=== PATIENT | female | born 1985 | race Caucasian/White ===

== ENCOUNTER → 2018-09-25 16:34 | Outpatient (CLI) | payer OTHER, SELFPAY ==
[2018-09-25 15:50] VITALS: BMI 30.7
[2018-09-25 17:13] LABS: Absolute Neutrophil Count 5.1 X10^3/uL (2.0-7.7); Basophil# 0.01 X10^3/uL; Basophil% 0.1 % (0-1); Eosinophil# 0.21 X10^3/uL; Eosinophils% 2.7 % (0-5); Hemoglobin 10.9 g/dl (12.0-15.0); Lymphocyte % 24.5 % (19-41); Mean Corp Hgb Conc 34.1 g/gl (32-36); Mean Corpuscular Hgb 30.1 pg (27.0-32.0); Mean Corpuscular Volume 88.4 fL (81-99); Mean Platelet Vol. 9.2 fl (6.2-12.0); Monocyte% 6.5 % (0-10); Neutrophil # 5.12 X10^3/uL (2.7-7.7); Neutrophil % 66.1 % (47-70); Platelet Count 206 K/mm3 (150-450); RBC Distribution Width CV 12.5 % (11.6-14.6); RBC Distribution Width SD 40.6 fl (35.1-43.9); Red Blood Count 3.62 M/mm3 (4.2-5.4); White Blood Count 7.8 K/mm3 (4.4-11.0)
[2018-09-25 17:24] LABS: POSITIVE COUNT NO; POSITIVE DIFFERENTIAL NO; POSITIVE MORPHOLOGY NO
[2018-09-25 18:24] LABS: HIV - WCH Non-Reactive (Nonreactive); Rubella IgG 53.5 IU/mL
[2018-09-27 01:41] LABS: Rapid Plasmin Reagin (RPR) NONREACTIVE (NONREACTIVE)
[2018-09-27 16:33] LABS: HEPATITIS B SURFACE AG Negative (Negative)
== END ==
PROVIDERS: Nurse Practitioner Women's Health; Family Provider Family Medicine; PCP Family Medicine; Referring Provider Obstetrics & Gynecology; Visit Provider Obstetrics & Gynecology
DX: Z34.90 Encounter for supervision of normal pregnancy, unspecified, unspecified trimester (principal)
CPT/HCPCS: 36415; 85025; 86592; 86703; 86762; 86850; 86900; 87340

== ENCOUNTER → 2018-09-25 19:30 | Outpatient (CLI) | payer OTHER, SELFPAY ==
[2018-09-25 15:50] VITALS: BMI 30.7
[2018-09-25 22:02] LABS: Chlamydia Trachomatis by PCR Negative (Negative); Neisserai gonorrhoeae by PCR Negative (Negative); Probe Check PASS; Sample Adequacy Control PASS; Specimen Processing Control PASS
[2018-10-01 14:05] LABS: HPV Genotype 16, Aptima Negative (Negative)
[2018-10-01 14:56] LABS: HPV APTIMA, High Risk Positive (Negative); HPV Genotype 18,45 Aptima Negative (Negative)
== END ==
PROVIDERS: Family Provider Family Medicine; PCP Family Medicine; Visit Provider Nurse Practitioner Women's Health
DX: Z34.90 Encounter for supervision of normal pregnancy, unspecified, unspecified trimester (principal); Z12.4 Encounter for screening for malignant neoplasm of cervix
CPT/HCPCS: 87077; 87086; 87088; 87491; 87591; 87624; 88175; G0145

== ENCOUNTER → 2018-10-03 13:08 | Outpatient (CLI) | payer SELFPAY ==
[2018-09-25 15:50] VITALS: BMI 30.7
--- NOTE | 2018-10-03 13:10 | US_ITS ---
STUDY: SECOND AND THIRD TRIMESTER OBSTETRICAL ULTRASOUND REASON FOR EXAM: Female, 33 years old. Routine survey. LMP: May 02, 2018. TECHNIQUE: Transabdominal TECHNICAL QUALITY: Adequate. PRIOR ULTRASOUND: None. FINDINGS: There is a single intrauterine fetus. The fetus is in a breech presentation. There is demonstrated cardiac activity with a heart rate of 150 bpm. There is a normal amniotic fluid volume. The largest amniotic fluid pocket measures 6.7 cm x 4.4 cm. The amniotic fluid index (FLAVIA) is normal. The placenta is posterior in location and is not low lying. There are Grade 0 placental changes. The cervix measures 3.3 cm in length. The bilateral adnexal regions are normal. BIOMETRY: BPD: 5.19 cm: 21 weeks, 6 days HC: 20.09 cm: 22 weeks, 2 days AC: 18.29 cm: 23 weeks, 1 days FL: 3.74 cm: 22 weeks, 0 days CI: 76% FL/BPD: 72% FL/HC: FL/AC: 20% HC/AC: 1.10 age by current US: 22 weeks, 3 days. TERENCE by current US: February 03, 2019. Estimated Age by LMP: 20 weeks, 0 days. TERENCE by LMP: February 06, 2019. ANATOMY: Gender: Male Cranium: Normal lateral ventricles. Normal choroid plexus. Normal cerebellum. Normal cisterna magna. Normal face, nose and lips. Chest: Normal 4-chamber heart. Abdomen/Pelvis: Normal diaphragm. Normal stomach. Normal abdominal wall. Normal cord insertion. Normal 3 vessel cord. Normal kidneys. Normal bladder. Spine: Normal cervical spine. Normal thoracic spine. Normal lumbar spine. Normal sacrum. Extremities: Normal bilateral upper extremities. Normal bilateral lower extremities. US/OB Anatomy Scan IMPRESSION: Single live intrauterine gestation with a mean gestational age of 22 weeks and 3 days. Electronically Signed: Edagrd Jessica MD at 15:15 EST Tel [phone], Service support ,
== END ==
PROVIDERS: Family Provider Family Medicine; PCP Family Medicine; Referring Provider Nurse Practitioner Women's Health; Visit Provider Nurse Practitioner Women's Health
DX: Z36.89 Encounter for other specified antenatal screening (principal)
CPT/HCPCS: 76805

== ENCOUNTER → 2018-11-08 12:15 | Outpatient (CLI) | payer SELFPAY ==
[2018-11-08 11:48] VITALS: BMI 30.7
[2018-11-08 13:31] LABS: Absolute Lymphocyte Count 1.53 X10^3/ul (0.83-4.51); Absolute Neutrophil Count 4.9 X10^3/uL (2.0-7.7); Basophil# 0.01 X10^3/uL; Basophil% 0.1 % (0-1); Eosinophil# 0.09 X10^3/uL; Eosinophils% 1.3 % (0-5); Hematocrit 30.9 % (37-47); Hemoglobin 10.2 g/dl (12.0-15.0); Lymphocyte # 1.53 X10^3/ul (4.0); Lymphocyte % 21.4 % (19-41); Mean Corpuscular Hgb 29.7 pg (27.0-32.0); Mean Corpuscular Volume 89.8 fL (81-99); Mean Platelet Vol. 9.7 fl (6.2-12.0); Monocyte# 0.62 X10^3/uL; Monocyte% 8.7 % (0-10); Neutrophil # 4.89 X10^3/uL (2.7-7.7); Neutrophil % 68.2 % (47-70); Platelet Count 224 K/mm3 (150-450); RBC Distribution Width CV 12.4 % (11.6-14.6); RBC Distribution Width SD 39.1 fl (35.1-43.9); Red Blood Count 3.44 M/mm3 (4.2-5.4); White Blood Count 7.2 K/mm3 (4.4-11.0)
[2018-11-08 13:35] LABS: POSITIVE COUNT NO; POSITIVE DIFFERENTIAL NO; POSITIVE MORPHOLOGY NO
[2018-11-08 14:00] LABS: Glucose Challenge Gest 1H 50g 67 mg/dL (70-140)
== END ==
PROVIDERS: Family Provider Family Medicine; PCP Family Medicine; Referring Provider Obstetrics & Gynecology; Visit Provider Obstetrics & Gynecology
DX: Z34.80 Encounter for supervision of other normal pregnancy, unspecified trimester (principal)
CPT/HCPCS: 36415; 82950; 85025

== ENCOUNTER → 2018-12-12 11:45 | Outpatient (CLI) | payer OTHER, SELFPAY ==
[2018-12-12 11:31] VITALS: BMI 30.7
[2018-12-12 12:06] LABS: Absolute Lymphocyte Count 1.57 X10^3/ul (0.83-4.51); Absolute Neutrophil Count 4.6 X10^3/uL (2.0-7.7); Basophil# 0.01 X10^3/uL; Basophil% 0.1 % (0-1); Eosinophils% 1.5 % (0-5); Hematocrit 33.7 % (37-47); Hemoglobin 10.8 g/dl (12.0-15.0); Lymphocyte # 1.57 X10^3/ul (4.0); Lymphocyte % 22.9 % (19-41); Mean Corpuscular Hgb 28.6 pg (27.0-32.0); Mean Corpuscular Volume 89.4 fL (81-99); Mean Platelet Vol. 9.5 fl (6.2-12.0); Monocyte# 0.53 X10^3/uL; Monocyte% 7.7 % (0-10); Neutrophil # 4.61 X10^3/uL (2.7-7.7); Neutrophil % 67.4 % (47-70); Platelet Count 206 K/mm3 (150-450); RBC Distribution Width CV 13.2 % (11.6-14.6); RBC Distribution Width SD 41.8 fl (35.1-43.9); Red Blood Count 3.77 M/mm3 (4.2-5.4); White Blood Count 6.9 K/mm3 (4.4-11.0)
[2018-12-12 12:07] LABS: POSITIVE COUNT NO; POSITIVE DIFFERENTIAL NO; POSITIVE MORPHOLOGY NO
== END ==
PROVIDERS: Family Provider Family Medicine; PCP Family Medicine; Visit Provider Nurse Practitioner Women's Health
DX: O99.019 Anemia complicating pregnancy, unspecified trimester (principal); Z3A.00 Weeks of gestation of pregnancy not specified
CPT/HCPCS: 36415; 85025

== ENCOUNTER → 2019-01-16 | Outpatient (CLI) | payer OTHER, SELFPAY ==
[2019-01-16 15:47] VITALS: BMI 30.7
== END | disposition home or self-care (01) ==
LOC: LABSPEC 17:12
PROVIDERS: Family Provider Family Medicine; PCP Family Medicine; Referring Provider Obstetrics & Gynecology; Visit Provider Obstetrics & Gynecology
DX: Z34.91 Encounter for supervision of normal pregnancy, unspecified, first trimester (principal)
CPT/HCPCS: 87081

== ENCOUNTER 2019-01-29 02:05 | Inpatient (IN) | payer SELFPAY ==
[2018-09-25 15:50] VITALS: BMI 30.7
[2019-01-16 15:47] VITALS: BMI 30.7
[2019-01-29] MEDS: Lactated Ringers 1,000 ML 50 ML IV (02:20)
[2019-01-29 02:38] LABS: Absolute Lymphocyte Count 1.76 X10^3/ul (0.83-4.51); Absolute Neutrophil Count 6.2 X10^3/uL (2.0-7.7); Basophil# 0.01 X10^3/uL; Basophil% 0.1 % (0-1); Eosinophil# 0.11 X10^3/uL; Eosinophils% 1.2 % (0-5); Hematocrit 37.1 % (37-47); Hemoglobin 12.6 g/dl (12.0-15.0); Lymphocyte # 1.76 X10^3/ul (4.0); Lymphocyte % 19.9 % (19-41); Mean Corpuscular Hgb 28.8 pg (27.0-32.0); Mean Corpuscular Volume 84.9 fL (81-99); Mean Platelet Vol. 9.4 fl (6.2-12.0); Monocyte# 0.71 X10^3/uL; Neutrophil # 6.24 X10^3/uL (2.7-7.7); Neutrophil % 70.5 % (47-70); Platelet Count 246 K/mm3 (150-450); RBC Distribution Width CV 13.5 % (11.6-14.6); RBC Distribution Width SD 41.5 fl (35.1-43.9); Red Blood Count 4.37 M/mm3 (4.2-5.4); White Blood Count 8.9 K/mm3 (4.4-11.0)
[2019-01-29 02:40] LABS: POSITIVE COUNT NO; POSITIVE DIFFERENTIAL NO; POSITIVE MORPHOLOGY NO
[2019-01-29] MEDS: Oxytocin 30 units/NS 500 ml 30 UNITS/500 ML IV.SOLN 334 UNITS IV (02:40)
[2019-01-29 02:45] LABS: Prothrombin Time (Protime)PT. 13.2 SECONDS (11.7-14.9)
[2019-01-29 02:46] LABS: Partial Thromboplast Time 28.2 Seconds (24.1-36.2)
[2019-01-29 02:50] LABS: AST(SGOT) 28 U/L (15-37); Alanine Aminotransfer ALT/SGPT 28 U/L (13-56); EST Glomerular Filtration Rate 122 mL/min (>60); Est Glom Filt Rate - Afr Amer 147 mL/min (>60); Uric Acid 3.9 mg/dL (2.6-6.0)
[2019-01-29 03:00] VITALS: BMI 32.2
--- NOTE | 2019-01-29 03:02 | HP.PCM_ITS ---
- Problem List (1) Precipitous delivery Status: Acute (2) Advanced maternal age during in third trimester Status: Acute Comment: genetic counseling provided and declined, growth us 36 weeks (3) Positive test for human papillomavirus (HPV) Status: Acute Comment: Negative PAP repeat in 1 year (4) Anemia in preg-unspec Status: Acute Comment: iron repeat monthly cbc (5) Status: Acute Qualifiers: Comment: carrier, genetic, and NTD screening declined. Anatomy US nl (6) Late care affecting in second trimester Status: Acute Comment: First visit at 20 weeks (7) Supervision of other normal Status: Acute Comment: PRR TERENCE 02/06/19 PC: Moraima Alonso Leah, Jaden Mckay. Spouse Elder History Date of Admission: 09/27/17 Final TERENCE: 02/06/19 Gestational age: 38 Weeks and 6 Days History of this : This is a 33 year-old, G6, P5 at 38 weeks 6 days weeks gestational age presents in active labor 9 cm of dilation and delivered precipitously. Contractions had been on and off throughout the day prior but onset of active labor started just after midnight and patient presented at 2:30 in the morning. Patient denied denied any significant vaginal bleeding denied any loss of fluid. She admitted good movement. She has had an uncomplicated although initial blood pressure was elevated at 164/100 but repeat blood pressure was within normal limits. Surgical History: Surgical History (Last Reviewed 01/16/19 @ 15:46 by Miranda Ruvalcaba) Carpal tunnel syndrome of right wrist G56.01 History of hip surgery Z98.890 Allergies No Known Allergies Allergy (Verified 01/16/19 15:46) Home Medications: Home Medications sertraline 100 mg tablet 200 mg PO QDAY #60 tab 11/08/18 ferrous sulfate 325 mg (65 mg iron) tablet 325 mg PO DAILY tab 01/16/19 Smoking Status: Never smoker Alcohol: None Number of Fetus(es): 1 Heart Tracin moderate variability reactive no decelerations category I tracing Vale: regular History Past Pregnancies: Past Pregnancies Pregancy History 6 Elective abortions Hx Para 5 Spontaneous abortions Hx # Term Pregnancies 5 Ectopic pregnancies Hx # Pregnancies Multiple births # of living children 5 Past Pregnancies Del. Date Name GA/Weeks Outcome Route Bth Weight Gen Labor Lgth Anes thesia Del Locatn Provider FOB 05/30/05 Celeste live - full term Female [facility] 10/26/07 Moraima live - full term Female [facility] 09/27/09 Alyson live - full term Female [place] 07/05/12 Nely live - full term Male [facility] 08/20/15 Jaden live - full term Male [place] Labs: Mom's Problem List Problem Status Onset Code Precipitous delivery Acute O62.3 Mom's Labs & Results 01/29/19 01/29/19 01/29/19 02:18 02:18 02:18 WBC 8.9 RBC 4.37 Hgb 12.6 Hct 37.1 MCV 84.9 MCH 28.8 MCHC 34.0 RDW 13.5 RDW Differential 41.5 Plt Count 246 MPV 9.4 Immature Gran % (Auto) 0.300 Neut % (Auto) 70.5 H Lymph % (Auto) 19.9 [place] % (Auto) 8.0 Eos % (Auto) 1.2 Baso % (Auto) 0.1 Absolute Neuts (auto) 6.2 Absolute Lymphs (auto) 1.76 Total Counted Not Reportable PT 13.2 INR 1.0 APTT 28.2 Creatinine Est GFR (MDRD) Af Amer Est GFR (MDRD) Non-Af Uric Acid AST ALT Blood Type Pending Antibody Screen Pending 01/29/19 02:18 WBC RBC Hgb Hct MCV MCH MCHC RDW RDW Differential Plt Count MPV Immature Gran % (Auto) Neut % (Auto) Lymph % (Auto) [place] % (Auto) Eos % (Auto) Baso % (Auto) Absolute Neuts (auto) Absolute Lymphs (auto) Total Counted PT INR APTT Creatinine 0.60 Est GFR (MDRD) Af Amer 147 Est GFR (MDRD) Non-Af 122 Uric Acid 3.9 AST 28 ALT 28 Blood Type Antibody Screen Social History Hx Smoking No Smoking Status Never smoker Expected Infant Delivery Method: Spontaneous Vaginal Review of Systems Constitutional: Denies: Fever, Malaise Eyes: Denies: Blurred vision, Vision Change HEENT: Denies: Head Aches, Visual Changes Cardiovascular: Denies: Chest Pain, Palpitations Respiratory: Denies: Cough, Shortness of Breath, Wheezing Gastrointestinal: Denies: Abdominal Pain, Diarrhea, Nausea, Vomiting Genitourinary: Denies: Dysuria, Hematuria Musculoskeletal: Denies: Joint Pain, Muscle pain Skin: Denies: Lesions, Rash Neurological: Denies: Blurred vision, Focal weakness, Headaches Psychiatric: Denies: Anxiety, Depression Endocrine: Denies: Heat/ Cold Intolerance Hematologic/ Lymphatic: Denies: Easy Bruising, Easy Bleeding Physical Exam General: Alert, Cooperative, No apparent distress HEENT: Atraumatic, Normocephalic. Negative for: Thyromegaly, Lymphadenopathy Cardiovascular: Regular rate Lungs: Normal air movement Abdomen: Soft, Non Tender, Gravid Neurological: Deep Tendon Reflexes 2+/4 and Symmetrical, Neuro grossly intact. Negative for: Clonus HEALTH EDUCATION ASSISTANT: Normal external genitalia. Negative for: Vulvar lesions Estimated gestational size: Appropriate for gestational size Presentation: Cephalic Cervix Dilation (cm): 10 Assessment/Plan All Active Problems (Last Reviewed 01/16/19 @ 15:46 by Miranda Ruvalcaba) Precipitous delivery (Acute) Advanced maternal age during in third trimester (Acute) Positive test for human papillomavirus (HPV) (Acute) Anemia in preg-unspec (Acute) (Acute) Late care affecting in second trimester (Acute) Supervision of other normal (Acute) This is a 33 year-old, G 6P5 at 38 weeks 6 days weeks gestational age presents in active labor delivered precipitously Precipitous delivery no complications, initial elevated blood pressure but repeat within normal limits. Preeclampsia labs sent. Rh+ and rubella immune. GBS negative.
--- NOTE | 2019-01-29 03:06 | PCM.OPRPT ---
Problem List (1) Precipitous delivery Status: Acute (2) Advanced maternal age during in third trimester Status: Acute Comment: genetic counseling provided and declined, growth us 36 weeks (3) Positive test for human papillomavirus (HPV) Status: Acute Comment: Negative PAP repeat in 1 year (4) Anemia in preg-unspec Status: Acute Comment: iron repeat monthly cbc (5) Status: Acute Qualifiers: Comment: carrier, genetic, and NTD screening declined. Anatomy US nl (6) Late care affecting in second trimester Status: Acute Comment: First visit at 20 weeks (7) Supervision of other normal Status: Acute Comment: PRR TERENCE 02/06/19 PC: Moraima Alonso, Alyson, Jaden Mckay. Spouse Elder Vaginal Delivery Maternal Presentation: Active Labor [id number] precipitous delivery Amniotic Membrane Rupture Type: Artificial Amniotic Fluid Description: Clear Final TERENCE: 02/06/19 Gestational age: 38 Weeks and 6 Days Date of Procedure: 01/29/19 Pre-Operative Diagnosis: ial Post-Operative Diagnosis: same Surgery/ Procedure Performed: Spontaneous Vaginal Delivery Type of Anesthesia: None Description of Procedure: Patient began pushing and delivered the head in the PAIGE presentation. The head was delivered atraumatically. The anterior and posterior shoulders delivered without complication followed by the rest of the and the was placed on the maternal abdomen. Delayed cord clamping was employed for approximately 60 seconds. Cord was clamped and cut and gentle traction was applied to the cord and the placenta delivered spontaneously immediately following it was noted to be intact with three-vessel cord. The perineum and vagina were inspected and small first-degree perineal laceration was noted and injected with 1% lidocaine and one stitch of 3-0 Vicryl repeat was placed. EBL was 100 cc. Patient and tolerated delivery well. Presentation: PAIGE Placental Delivery Description: Spontaneous Placenta Disposition: [facility] Cord Vessel Description: 3 Vessels Cord Entanglement: None Estimated Blood Loss: 100 A gender: Male Episiotomy Description: None Laceration: Perineal Extension/lac, 1st degree Medications given after delivery: IV Pitocin Complications: None
[2019-01-29] MEDS: Oxytocin 30 units/NS 500 ml 30 UNITS/500 ML IV.SOLN 167 UNITS IV (03:10)
[2019-01-29] MEDS: 0.9% Saline Lock 10 ML Syringe IV (04:18)
[2019-01-29 07:37] VITALS: BP 122/85; PULSE 84; RESP 16; TEMP 36.6
[2019-01-29] MEDS: Acetaminophen 500 MG Tablet 1000 MG PO (08:09)
[2019-01-29 10:52] VITALS: BP 116/68; PULSE 87; RESP 16; TEMP 37.4
[2019-01-29 15:50] VITALS: BP 119/77; PULSE 83; RESP 18; TEMP 37.1
--- NOTE | 2019-01-29 16:50 | CASEMGMT ---
Social Work Assessment Labor and Delivery Unit Date of Referral: 01/29/2019 Time of Referral: 06 Referred By: Dr. Hunter Date of Intervention: 01/29/2019 Time of Intervention: 1649 Reason for Referral: maternal history anxiety and depression History obtained from: patient/mother of baby (MOB) and medical records Household composition: MOB, father of baby (FOB), and older children live in the home. MOB reports home situation is safe and adequate. Patient's parent/guardian status: MOB Lizzeth Johnson and FOB Elder Johnson, and Jamil couple, have been for 14 years and now have 6 children together. MOB denies any form of abuse, control, or intimidation in relationship with FOB. MOB is advanced maternal age at 33 years old. Minor children include: Celeste (born 05.30.2005), Moraima (born .), Alyson (born 09.27.2009), Goltry (born 07.05.2012), Dano (born 08.20.2015), and Rigo (born 01.29.2021). Medical History: MOB is G6, P5 to 6 after delivering baby Rigo. MOB with care starting late at 20 weeks gestation. visits at 20, 27, 32, 34, and 37 weeks gestation. KRISTINE has delivered other babies at [facility] and [facility]. Baby Rigo born weighing 7 pounds 15 ounces. Apgars 7 and 8 at 1 and 5 minutes of life. MOB reports this has been the hardest physically, as MOB developed hip pain near the end of . Educational Status: KRISTINE has an 8th grade education as is the norm for the [employer]. MOB reports to be able to read, write, and to understand what is read. Financial Status: FOB works as a wood worker; is self-employed. Supplies: MOB states to have needed supplies to get started including a car seat, save sleep space, clothes, diapers, and wipes. MOB plans to breast feed as has done with previous children. Childcare/Caregiver(s): MOB is the primary farm or ranch animal caretaker to all of the children. FOB assists. Transportation: Horse and buggy or hired ice cream truck driver. Programs/Agencies Involved: No agency or government involvement. Children Services/Legal Issues: None reported. Behavioral Health Issues: Mental Health History: MOB reports long history of depression and anxiety, outside of . MOB reports has experienced some depression after previous deliveries, but reports the depression was no more than was is usual for MOB. MOB reports the beginning of this was hard, that did have some anxiety for the first couple of months. MOB reports after about 3 months things started to level out again for MOB. MOB reports that sometimes feels overwhelmed, stressed, and then starts to feel down. MOB reports has thought in the past that life was not worth living, feeling hopeless, but denies any active thought to kill self or further thinking about plan; denies intent to kill self. No reports of any current thoughts of dying or self-harm. MOB reports to be feeling okay right now. MOB reports to take Zoloft, and has taken Prozac in the past. MOB reports has been talking to counselor Karina Unger at [facility] that maybe after the baby is born medication would be looked and adjusted if needed. MOB reports to have an appointment at [facility] the beginning of February. MOB reports that has gone through the ?[facility]? program through [facility] and felt this program as helpful to MOB?s depression. Substance Use History: No reports or indication of any substance use or abuse history. Drug Screens: None noted in the chart. Family/Social Stressors: MOB now has 6 children, did mention that FOMook would like to have a lot of kids and MOB is not so sure about many having more, maybe just one or two more. MOB does experience depression but is in treatment. Support Systems: MOB identifies FOB as primary support person. Through conversation, MOB reports to feel close to the women that were in the Living Well program with MOB, that it was nice to know that not alone. MOB reports the oldest daughter, who is 12, will be MOB?s helper upon transition home. MOB reports if finds that needs more help then will call on a [id number] to help out with things around the home. ASSESSMENT: MOB pleasant and willing to engage in conversation with social services aide. MOB smiled and laughed at appropriate times, but overall affect constricted. MOB with fair eye contact. MOB reports plan to stay in counseling and on medication for depression. MOB denies any thoughts, plans, intent for self harm. MOB reports to be hopeful due it coming into summer, that this time of years helps MOB?s mood as well as allows for the kids to get outside and play. Talked with MOB about coping, and self care as much as able to do in current situation. MOB reports FOB is supportive and is supportive of MOB being in counseling. MOB reports will have help at home, and if needs more help can call on other family to help out. MOB accepting of depression packet that includes numbers to call and local resources if further needs arise. MOB thanked social services aide for visit. Denies any other needs at this time. Emotional support and supportive listening offered to MOB this date. No voiced concerns by nursing staff regarding mother/child bonding. Baby was sleeping during social work visit, but as social services aide leaving MOB indicated it is time to waked baby to feed. MOB gazed at bay intermittently during social work visit. PLAN: MOB and baby to home when ready. Mental health resources are reported to be in place for MOB. MOB accepting additional written material regarding depression and anxiety. No other services requested or indicated but social work does remain available should further needs arise prior to discharge. -PEARL Disla, PRECISION DEVICES INSPECTOR/TESTER
[2019-01-29 20:16] VITALS: BP 140/80; PULSE 84; RESP 18; TEMP 36.8
[2019-01-30 00:46] VITALS: BP 101/52; PULSE 71; RESP 15; TEMP 36.7
--- NOTE | 2019-01-30 07:30 | PCM.PN.OB ---
Patient Problems: Active and Suspected Problems (Last Reviewed 01/16/19 @ 15:46 by Miranda Ruvalcaba) Precipitous delivery (Acute) Subjective: doing well no complaints pain controlled no CP SOB N V ambulating well tolerating po lochia moderate, going well - Physical Exam General: Alert, Oriented x3 Abdomen: Soft, Non Tender, - - FF below U Vital Signs Temp Pulse Resp BP 98.1 F 71 15 101/52 L 01/30/19 00:46 01/30/19 00:46 01/30/19 00:46 01/30/19 00:46 Oxygen Delivery Method Room Air Weight: 205 lb 11.06 oz Body Mass Index (BMI) 32.2 Intake and Output for Last 24 Hours 01/28/19 01/29/19 01/30/19 23:59 23:59 23:59 Output Total 1500 / 1500 Balance -1500 / -1500 Medical Necessity - Tobacco Use Smoking Status: Never smoker Assessment/Plan All Active Problems (Last Reviewed 01/16/19 @ 15:46 by Miranda Ruvalcaba) Precipitous delivery (Acute) Advanced maternal age during in third trimester (Acute) Positive test for human papillomavirus (HPV) (Acute) Anemia in preg-unspec (Acute) (Acute) Late care affecting in second trimester (Acute) Supervision of other normal (Acute) s/p PPD # 1 1. routine post delivery care 2. breast feeding- support given 3. rh positive 4. rubella immune 5. Home today
--- NOTE | 2019-01-30 07:31 | PCM.DCVAG ---
Additional Instructions: If you experience any of the following, contact your healthcare provider. Bleeding that soaks a pad every hour for 2 hours Fever 100.4 or higher Unrelieved incision or abdominal pain Swelling, redness, discharge or bleeding from your incision or episiotomy site Your incision begins to separate Problems urinating (including inability to urinate or burning while urinating). Visual changes Severe headache Flu-like symptoms Pain or redness in one of both of your breasts Pain, warmth, tenderness or swelling in your legs, especially the calf area Frequent nausea and vomiting Symptoms of depression or anxiety If you experience any of the following, call 911 or go to the nearest Emergency Room. Chest pain Problems breathing Seizure activity Partial or complete paralysis of a body part, slurred speech, weakness or drooping of the face, or a sudden inability to walk or hold your balance Allergies/Adverse Reactions: Allergies No Known Allergies Allergy (Verified 01/16/19 15:46) Medications to take at Discharge sertraline 100 mg tablet 200 mg PO QDAY #60 tab 11/08/18 ferrous sulfate 325 mg (65 mg iron) tablet 325 mg PO DAILY tab 01/16/19 Primary Care Physician: Celso Powers [Primary Care Provider] - Test Results: Test results from this visit will be discussed in further detail at your follow-up appointment, if applicable.
--- NOTE | 2019-01-30 07:32 | DCINST_ITS ---
Additional Instructions: If you experience any of the following, contact your healthcare provider. * Bleeding that soaks a pad every hour for 2 hours * Fever 100.4 or higher * Unrelieved incision or abdominal pain * Swelling, redness, discharge or bleeding from your incision or episiotomy site * Your incision begins to separate * Problems urinating (including inability to urinate or burning while urinating). * Visual changes * Severe headache * Flu-like symptoms * Pain or redness in one of both of your breasts * Pain, warmth, tenderness or swelling in your legs, especially the calf area * Frequent nausea and vomiting * Symptoms of depression or anxiety If you experience any of the following, call 911 or go to the nearest Emergency Room. * Chest pain * Problems breathing * Seizure activity * Partial or complete paralysis of a body part, slurred speech, weakness or drooping of the face, or a sudden inability to walk or hold your balance Allergies/Adverse Reactions: Allergies No Known Allergies Allergy (Verified 01/16/19 15:46) Medications to take at Discharge sertraline 100 mg tablet 200 mg PO QDAY #60 tab 11/08/18 ferrous sulfate 325 mg (65 mg iron) tablet 325 mg PO DAILY tab 01/16/19 Primary Care Physician: Celso Powers [Primary Care Provider] - Test Results: Test results from this visit will be discussed in further detail at your follow- up appointment, if applicable.
[2019-01-30 08:48] VITALS: BP 123/77; PULSE 72; RESP 14; TEMP 36.7; O2SAT 98
== END 2019-01-30 11:09 | disposition home or self-care (01) | DRG 807 ==
PROVIDERS: Admitting Provider Obstetrics & Gynecology; Family Provider Family Medicine; PCP Family Medicine; Referring Provider Obstetrics & Gynecology; Visit Provider Obstetrics & Gynecology
DX: O62.3 Precipitate labor (principal); Z37.0 Single live birth; O70.0 First degree perineal laceration during delivery; O99.013 Anemia complicating pregnancy, third trimester; D64.9 Anemia, unspecified; Z3A.38 38 weeks gestation of pregnancy
CPT/HCPCS: 59025; 59050; 82565; 84450; 84460; 84550; 85025; 85610; 85730; 86850; 86900; 99218; J7120; A4216; G0378

== ENCOUNTER → 2019-03-11 | Outpatient (CLI) | payer SELFPAY ==
[2019-03-11 10:10] VITALS: BMI 32.2
[2019-03-19 08:52] LABS: HPV APTIMA, High Risk Negative
== END | disposition home or self-care (01) ==
LOC: LABSPEC 13:03
PROVIDERS: Referring Provider Obstetrics & Gynecology; Visit Provider Obstetrics & Gynecology
DX: Z12.4 Encounter for screening for malignant neoplasm of cervix (principal)
CPT/HCPCS: 87624; 88175; G0145